=== PATIENT | female | born 1990 | race Two or more races ===

== ENCOUNTER 2016-08-31 20:02 | Emergency (ER) | payer MEDICAID ==
[~2016-08-31] VITALS: Ht 147.3 cm; Wt 49.9 kg
[2016-08-31 20:26] VITALS: BP 139/76
[2016-08-31 21:01] LABS: Basophils # (auto) 0 uL; Basophils % (auto) 0.2 % (0.0-2.0); Eosinophils # (auto) 0 uL; Eosinophils % (auto) 0.2 % (0.0-7.0); Hematocrit 41.3 % (36.0-46.0); Hemoglobin 13.7 g/dL (12.2-16.2); Lymphocytes # (auto) 1.5 uL; Lymphocytes % (auto) 15.9 % (10.0-50.0); Mean Corpuscular Hemoglobin 28.1 pg (28.0-32.0); Mean Corpuscular Hgb Conc. 33.2 g/dL (32.0-36.0); Mean Corpuscular Volume 84.9 fL (80.0-100.0); Mean Platelet Volume 8.9 fL (7.4-10.4); Monocytes # (auto) 1.3 uL; Monocytes % (auto) 13.1 % (0.0-12.0); Neutrophils # (auto) 6.8 uL; Neutrophils % (auto) 70.6 % (37.0-80.0); Platelet Count (auto) 368 10^3/uL (140-450); Red Cell Distribution Width 13.2 % (11.6-16.0); White Blood Cell 9.6 10^3/uL (4.4-10.8)
[2016-08-31 21:09] LABS: Urine Bilirubin Negative (Negative); Urine Blood TRACE /uL (Negative); Urine Color Yellow (Yellow); Urine Glucose Normal (Normal); Urine Nitrite Negative (Negative); Urine RBC 3 /hpf (0 - 4); Urine Squamous Epithelial Cell MOD /hpf (<5); Urine Urobilinogen Normal (Negative)
[2016-08-31 21:10] LABS: Albumin 3.7 g/dL (3.4-5.0); BUN/Creatinine Ratio 15.2; Calcium 8.3 mg/dL (8.5-10.1); Potassium 3.3 mmol/L (3.5-5.1)
[2016-08-31 21:12] LABS: Urine Ketone 2+ (Negative)
[2016-08-31 21:13] LABS: Bilirubin, Total 0.9 mg/dL (0.2-1.0); Total Protein 7.9 g/dL (6.4-8.2)
== END 2016-09-01 01:25 | disposition left against medical advice (07) ==
LOC: ER 20:05
DX: R10.9 Unspecified abdominal pain (principal); M54.5 Low back pain; Z53.21 Procedure and treatment not carried out due to patient leaving prior to being seen by health care provider
CPT/HCPCS: 36415; 80053; 81001; 81025; 85025